=== PATIENT | male | born 2000 | race African-American/Black ===

== ENCOUNTER 2021-01-28 12:11 | Emergency (ER) | payer SELFPAY ==
[~2021-01-28] VITALS: Ht 185.4 cm; Wt 82.1 kg
--- NOTE | 2021-01-28 12:24 | NUR ---
BIB [facility] FROM WORK,WITNESSED SEIZURE EPISODE,LAST SEIZURE WAS 8 MONTHS AGO. PT AAOX4, VSS. RR EVEN & UNLABORED. DENIES CP, SOB, DIZZINESS, N/V AT THIS TIME. PT SEEN & EVAL'D BY DR. OLIVO. PLACED ON SEIZURE PRECAUTION. PLACED ON LABORATORY TECHNOLOGIST, SR. WILL CONT TO MONITOR.
[2021-01-28] MEDS ORDERED: LEVETIRACETAM (500MG) 1,000 MG in IV NS 0.9% 100 ML IV SCH (13:00)
[2021-01-28] MEDS ORDERED: LORAZEPAM INJ 2 MG/ML VIAL IV ONE (13:00)
[2021-01-28] MEDS ORDERED: IV NS 0.9% 1,000 ML IV ONE (13:00)
[2021-01-28] MEDS ORDERED: LORA-258 PO (13:13)
[2021-01-28] MEDS ORDERED: LEVE500T9 PO (13:13)
[2021-01-28] MEDS ORDERED: LORAZEPAM INJ 2 MG/ML VIAL ONE (13:14)
--- NOTE | 2021-01-28 14:07 | NUR ---
Patient discharged to home in stable condition. Written and verbal after care instructions given. Patient verbalizes understanding of instruction. IV removed. Catheter intact and site benign. Pressure and 4x4 applied to site. No bleeding noted.
[2021-01-28 14:08] VITALS: BP 120/62
== END 2021-01-28 14:09 | disposition home or self-care (01) ==
LOC: ER 12:14
DX: R56.9 Unspecified convulsions (principal); F10.10 Alcohol abuse, uncomplicated; F32.9 Major depressive disorder, single episode, unspecified; F17.200 Nicotine dependence, unspecified, uncomplicated; Y90.9 Presence of alcohol in blood, level not specified
CPT/HCPCS: 96365; 99284; J1953; J2060; J7030 ×2